=== PATIENT | male | born 1985 | race Two or more races ===

== ENCOUNTER 2020-03-20 20:21 | Emergency (ER) | payer SELFPAY ==
--- NOTE | 2020-03-20 20:52 | ED Physician Documentation ---
History of Present Illness - Stated complaint Stated Complaint: FB IN NOSE OR THROAT - Chief complaint Chief Complaint: Heent - History obtained from History obtained from: Patient - History of Present Illness Timing: Today Pain level max: 0 Pain level now: 0 - Additonal information Additional information: Eating a burrito tonight and feels like there might be a black moore in his throat or nose. Eating and drinking without difficulty. No vomiting. Able to breathe easily through both sides of the nose. Nothing makes it better or worse Review of Systems Constitutional: denies: Fever, Chills Throat: denies: Sore throat Cardiac: denies: Chest pain / pressure Respiratory: denies: Cough GI: denies: Vomiting, Diarrhea Skin: denies: Rash Musculoskeletal: denies: Neck pain, Back pain Neurologic: denies: Headache PD PAST MEDICAL HISTORY - Past Medical History Past Medical History: No - Past Surgical History Past Surgical History: Yes General: Appendectomy - Present Medications Home Medications: Ambulatory Orders Medication Instructions Recorded Confirmed No Known Home Medications 03/20/20 03/20/20 - Allergies Allergies/Adverse Reactions: Allergies Allergy/AdvReac Type Severity Reaction Status Date / Time No Known Drug Allergies Allergy Verified 03/20/20 20:25 - Social History Does the pt smoke?: No Smoking Status: Never smoker Does the pt drink ETOH?: Yes ETOH Use: Beer Does the pt have substance abuse?: No - POLST Patient has POLST: No PD ED PE NORMAL - Vitals Vital signs reviewed: Yes - General General: Alert and oriented X 3, No acute distress, Well developed/nourished - HEENT HEENT: Moist mucous membranes, Pharynx benign, Other (Normal intranasal exam. Normal intraoral exam. No visible foreign bodies. Moving air equally through both nostrils with one occluded.) - Neck Neck: Supple, no meningeal sign - Derm Derm: Warm and dry - Neuro Neuro: Alert and oriented X 3 Results - Vitals Vitals: Vital Signs - 24 hr 03/20/20 03/20/20 20:25 20:56 Temperature 36.5 C 36.5 C Heart Rate 98 95 Respiratory 16 16 Rate Blood Pressure 150/80 H 145/82 H O2 Saturation 98 98 Oxygen O2 Source Room air PD MEDICAL DECISION MAKING - ED course Complexity details: considered differential, d/w patient ED course: No visible foreign body. Tolerating p.o. without difficulty. No vomiting. No stridor. No wheezing. We will have him follow-up with his doctor as needed for further care. No indication of retained foreign body at this time Patient counseled regarding signs and symptoms for which I believe and urgent re-evaluation would be necessary. Patient with good understanding of and agreement to plan and is comfortable going home at this time This document was made in part using voice recognition software. While efforts are made to proofread this document, sound alike and grammatical errors may occur. Departure - Departure Disposition: 01 Home, Self Care Clinical Impression: Nasal foreign body Qualifiers: Encounter type: initial encounter Qualified Code(s): T17.1XXA - Foreign body in nostril, initial encounter Condition: Good Instructions: ED Foreign Body Nasal Follow-Up: your,doctor as needed [Other] Comments: Return if you worsen. Follow up with your doctor for further care. Discharge Date/Time: 03/20/20 20:57
[2020-03-20 20:58] VITALS: BP 145/82
== END 2020-03-20 20:57 | disposition home or self-care (01) ==
LOC: ED 20:21
DX: T17.1XXA Foreign body in nostril, initial encounter (principal); X58.XXXA Exposure to other specified factors, initial encounter
CPT/HCPCS: 99281; 99282